=== PATIENT | male | born 1995 | race Caucasian/White ===

== ENCOUNTER 2024-11-25 00:28 | Inpatient (IN) | payer SELFPAY ==
[2024-11-25] MEDS ORDERED: Acetaminophen 650 MG Suppository PR PRN (01:01)
[2024-11-25] MEDS ORDERED: Calcium Carbonate 500 MG ChewTAB PO PRN (01:01)
[2024-11-25] MEDS ORDERED: Acetaminophen 325 MG TAB PO PRN (01:01)
[2024-11-25] MEDS ORDERED: Ondansetron ODT 4 MG TAB PO PRN (01:01)
[2024-11-25 01:11] VITALS: BMI 39.0
[2024-11-25] MEDS ORDERED: Pantoprazole 80 MG in Sodium Chloride 0.9% 100 ML IVPB SCH (01:15)
[2024-11-25] MEDS: Lactated Ringer's 1,000 ML IV SCH (01:30)
[2024-11-25 01:33] LABS: #Basophils Less than 0.03 10x3/uL (0.0-0.2); #Eosinophils Less than 0.03 10x3/uL (0.0-0.7); %Basophils 0.2 % (0.0-1.0); %Lymphocytes 7.5 % (21.0-51.0); %Monocytes 2.1 % (0.0-10.0); %Neutrophils 89.9 % (42.0-75.0); Hematocrit 45.6 % (42.0-52.0); Hemoglobin 14.9 g/dL (14.0-18.0); Mean Corpuscular HGB CONC 32.7 g/dL (32.0-36.0); Mean Corpuscular Hemoglobin 28.9 pg (27.0-31.0); Mean Corpuscular Volume 88.4 fL (78.0-98.0); Mean Platelet Volume 9.2 fL (7.4-10.4); Platelet Count 181 10x3/uL (130-400); RBC Distribution Width 14.6 % (11.5-14.5); Red Blood Cell (RBC) Count 5.16 mill/uL (4.70-6.10)
[2024-11-25 01:50] LABS: Anion Gap 13 mmol/L (10-20); BUN (Urea Nitrogen) 16 mg/dL (8.9-20.6); Calc. Creatinine Clearance 262 mL/min (70-130); Calcium 9.4 mg/dL (7.8-10.44); Carbon Dioxide 25 mmol/L (22-29); Chloride 104 mmol/L (98-107); Estimated GFR 122; Glucose 121 mg/dL (70-105); Potassium 4.4 mmol/L (3.5-5.1); Sodium 138 mmol/L (136-145)
[2024-11-25] MEDS: fentaNYL 50 mcg/mL 1 mL Vial SLOW IVP SCH (02:17)
[2024-11-25] MEDS: Zolpidem Tartrate 5 MG TAB PO PRN (02:18)
[2024-11-25] MEDS ORDERED: Midazolam HCl 2 mg/2 ml Vial ONE (09:25)
[2024-11-25] MEDS ORDERED: PROPOFOL 20 ML ONE (09:25)
[2024-11-25] MEDS ORDERED: Lidocaine 2% PF 5 ML VIAL ONE (09:25)
[2024-11-25] MEDS ORDERED: HYDROmorphone 0.5 MG/0.5 ML SYRINGE ONE (09:27)
[2024-11-25] MEDS ORDERED: fentaNYL 50 mcg/mL 1 mL Vial ONE ×3 (10:20→10:37)
[2024-11-25] MEDS ORDERED: GoLYTELY 4,000 ml Bottle PO SCH (11:02)
[2024-11-25] MEDS: Ondansetron PF 4 MG/2 ML Vial IVP PRN (13:52)
[2024-11-25] MEDS: oxyCODONE 5 MG TAB PO SCH (13:59)
[2024-11-25 15:16] VITALS: BP 115/78; TEMP 98.2
== END 2024-11-25 16:48 | disposition left against medical advice (07) | DRG 379 ==
LOC: OBS 00:28
PROVIDERS: ADMIT Student in an Organized Health Care Education/Training Program; ATTEND Student in an Organized Health Care Education/Training Program
PROC: 0DJ08ZZ Inspection of Upper Intestinal Tract, Via Natural or Artificial Opening Endoscopic (ICD-10-PCS; principal; 2024-11-25)
DX: K92.0 Hematemesis (principal); E66.9 Obesity, unspecified; N28.89 Other specified disorders of kidney and ureter; Z68.39 Body mass index [BMI] 39.0-39.9, adult; Z88.8 Allergy status to other drugs, medicaments and biological substances; Z79.899 Other long term (current) drug therapy; Z90.49 Acquired absence of other specified parts of digestive tract; Z86.0100 Personal history of colon polyps, unspecified
CPT/HCPCS: 36415; 80048; 85025; J1171; J2250; J2405; J2470; J2704; J3010